=== PATIENT | male | born 1985 | race Caucasian/White ===

== ENCOUNTER 2018-09-22 22:23 | Emergency (ER) | payer BC, MEDICAID ==
[~2018-09-22] VITALS: Ht 185.4 cm; Wt 75.0 kg
[~2018-09-22 22:23] MED LIST: ADV50250 IH; HYDR-3965 PO; IBUP-1986 PO; LORA1TAB PO; METH-603 PO; PANT40TA39 PO
[2018-09-22 23:55] VITALS: BP 125/90
--- NOTE | 2018-09-23 00:25 | NUR ---
Pt wanting to leave. Discussed with ZELALEM Rico who indicated edoh was currently involved in an emergency. He will communicate to EDMD
--- NOTE | 2018-09-23 00:58 | NUR ---
Discussed pt's intention of leaving with Dr Benitez. CT not read. She recommends pt sign AMA with the understanding she will call if CT results indicate a need.
--- NOTE | 2018-09-23 01:00 | NUR ---
Communicated delay in reading of CT with pt and EDMD recommendation he stay. Pt desires to leave. He signed AMA form.
== END 2018-09-23 01:08 | disposition left against medical advice (07) ==
LOC: ER 22:23
DX: S00.11XA Contusion of right eyelid and periocular area, initial encounter (principal); J34.1 Cyst and mucocele of nose and nasal sinus; J45.909 Unspecified asthma, uncomplicated; G89.29 Other chronic pain; F41.9 Anxiety disorder, unspecified; F17.200 Nicotine dependence, unspecified, uncomplicated; Z98.890 Other specified postprocedural states; Z88.5 Allergy status to narcotic agent; Z88.1 Allergy status to other antibiotic agents; Z88.8 Allergy status to other drugs, medicaments and biological substances; Z79.899 Other long term (current) drug therapy; W22.8XXA Striking against or struck by other objects, initial encounter; Y93.64 Activity, baseball; Y92.89 Other specified places as the place of occurrence of the external cause; Y99.8 Other external cause status
CPT/HCPCS: 70486; 99284

== ENCOUNTER 2019-05-25 09:46 | Emergency (ER) | payer BC ==
[~2019-05-25] VITALS: Ht 185.4 cm; Wt 88.6 kg
[2019-05-25] MEDS ORDERED: LORazepam 2 mg/ml vial IV ONE (10:05)
[2019-05-25] MEDS ORDERED: metoclopramide 5 mg/ml inj IV ONE (10:05)
[2019-05-25] MEDS ORDERED: normal saline 1000ML IV soln IVB ONE (10:05)
--- NOTE | 2019-05-25 10:22 | NUR ---
to ct scan via wheelchair accompanied by factory worker
[2019-05-25 10:26] LABS: BASOPHILS % (AUTO) 0.3 % (0-1); EOSINOPHILS % (AUTO) 0.7 % (0-6); HEMATOCRIT 48.9 % (42.0-52.0); HEMOGLOBIN 16.4 g/dl (14.0-17.9); LYMPHOCYTES # (AUTO) 2.7 X10'3 (1.1-4.8); LYMPHOCYTES % (AUTO) 47.9 % (21-51); MEAN CORPUSCULAR HEMOGLOBIN 29.8 PG (27.0-31.0); MEAN CORPUSCULAR HGB CONC 33.4 g/dL (33.0-36.5); MEAN CORPUSCULAR VOLUME 89.1 FL (78-98); MEAN PLATELET VOLUME 7.8 FL (7.4-10.4); MONOCYTES # (AUTO) 0.5 X10'3 (0-0.9); MONOCYTES % (AUTO) 9.6 % (2-12); NEUTROPHILS # (AUTO) 2.4 X10'3 (1.8-7.7); NEUTROPHILS % (AUTO) 41.5 % (42-75); PLATELET COUNT 184 X10'3 (140-440); RED BLOOD COUNT 5.49 X10'6 (4.70-6.10); RED CELL DISTRIBUTION WIDTH 12.8 % (11.5-14.5); WHITE BLOOD COUNT 5.7 X10'3 (4.5-11.0)
[2019-05-25 10:43] LABS: ALANINE AMINOTRANSFERASE 94 U/L (12-78); ALBUMIN 4.2 G/DL (3.4-5.0); ALBUMIN/GLOBULIN RATIO 1.2 (1.1-1.5); ALKALINE PHOSPHATASE 66 IU/L (46-116); ANION GAP 6 (8-16); ASPARTATE AMINO TRANSFERASE 32 U/L (10-37); BILIRUBIN,TOTAL 0.6 MG/DL (0.1-1.0); BLOOD UREA NITROGEN 14 MG/DL (7-18); BUN/CREATININE RATIO 13.5 (5.4-32.0); CHLORIDE 108 MMOL/L (99-107); CREATININE 1.04 MG/DL (0.60-1.10); GLUCOSE 95 MG/DL (70-104); POTASSIUM 3.9 MMOL/L (3.5-5.1); SODIUM 144 MMOL/L (135-145); TOTAL CARBON DIOXIDE 29.7 MMOL/L (24-32); TOTAL PROTEIN 7.6 G/DL (6.4-8.2); eGFR 82 ML/MIN
[2019-05-25] MEDS ORDERED: ketorolac trometh. 30mg/ml inj. IV ONE (11:00)
[2019-05-25 11:27] VITALS: BP 113/68
== END 2019-05-25 11:30 | disposition home or self-care (01) ==
LOC: ER 09:46
DX: R51 Headache (principal); I10 Essential (primary) hypertension; J45.909 Unspecified asthma, uncomplicated; G89.29 Other chronic pain; F41.9 Anxiety disorder, unspecified; F17.200 Nicotine dependence, unspecified, uncomplicated; Z88.1 Allergy status to other antibiotic agents; Z88.5 Allergy status to narcotic agent; Z79.899 Other long term (current) drug therapy
CPT/HCPCS: 36415; 70450; 80053; 85025; 93005; 96374; 96375; 99285; J1885; J2060; J2765; J7030

== ENCOUNTER 2019-05-27 18:23 | Emergency (ER) | payer BC ==
[~2019-05-27] VITALS: Ht 185.4 cm; Wt 88.6 kg
[2019-05-27 18:25] VITALS: BP 155/97
[2019-05-27] MEDS ORDERED: ALBU8HFA PO (19:22)
== END 2019-05-27 19:30 | disposition home or self-care (01) ==
LOC: ER 18:25
DX: R06.02 Shortness of breath (principal); R05 Cough; R50.9 Fever, unspecified; F41.9 Anxiety disorder, unspecified; G89.29 Other chronic pain; Z87.442 Personal history of urinary calculi; Z88.5 Allergy status to narcotic agent; Z88.7 Allergy status to serum and vaccine; Z88.8 Allergy status to other drugs, medicaments and biological substances
CPT/HCPCS: 71045; 99283

== ENCOUNTER 2020-08-08 00:52 | Emergency (ER) | payer BC ==
[~2020-08-08] VITALS: Ht 185.4 cm; Wt 93.1 kg
[2020-08-08 01:05] VITALS: BP 128/91
== END 2020-08-08 03:00 | disposition left against medical advice (07) ==
LOC: ER 00:53
DX: M54.9 Dorsalgia, unspecified (principal); Z53.21 Procedure and treatment not carried out due to patient leaving prior to being seen by health care provider